=== PATIENT | female | born 1970 | race Caucasian/White ===

== ENCOUNTER 2021-03-02 22:09 | Emergency (ER) | payer BC, SELFPAY ==
[2021-03-02 22:20] VITALS: BP 133/88; PULSE 85; RESP 20; TEMP 36.8; O2SAT 98
[2021-03-02] MEDS: methylPREDNISolone ACETATE 40 MG/ML VIAL 80 MG IM (22:47)
--- NOTE | 2021-03-02 23:06 | ED.SKABFB ---
HPI - Skin/Abscess/Foreign Bdy General Chief complaint: Allergic Reaction Stated complaint: stung by wasp, HIVES Source: patient Mode of arrival: ambulatory Limitations: no limitations History of Present Illness HPI narrative: This is 50-year-old female that presents with a wasp sting to her right lower foot area and has caused a rash that is in her abdomen and back area with no audible wheezing no shortness of breath no nausea vomiting or abdominal pain no fever chills. The patient had a wasp sting earlier today and has tried Benadryl [id number] with some some relief, never had anaphylactic reaction. complaint: rash Onset (ago): hour(s) Location: chest, back and RLE Severity: moderate Pain Consistency: constant Related Data Allergies Allergy/AdvReac Type Severity Reaction Status Date / Time No Known Allergies Allergy Verified 09/23/19 19:39 Review of Systems Review of Systems: All systems reviewed & are unremarkable except as noted in HPI and below PMFSH Past Medical History Medical History Patient denies medical problems Surgical History Surgical History History of cholecystectomy Hx of left knee surgery Hx of right knee surgery Social History Social History Smoking status: Never smoker Alcohol intake: current Substance use: never Gender identity (if verbalized by the patient): Female Exam Const: General: no acute distress and alert Orientation/consciousness: patient oriented x3 HENMT: Head: normal to inspection Eyes: Conjunctivae: conjunctivae normal Pupils: Equal, round and reactive pupils present Neck: Neck: normal visual inspection, no lymphadenopathy and no meningeal signs Chest: Chest palpation & inspection: normal inspection of the chest Resp: Effort & Inspection: normal respiratory effort Auscultation: clear to auscultation bilaterally Cardio: Rate: regular rate Rhythm: regular rhythm GI: GI Palp: Yes Soft to palpation Percussion: Yes normal to percussion : General: Yes no CVA tenderness Back/Spine/Pelvis: Back: no CVA tenderness Skin: Other: urticarial rash located on her upper abdomen and back and an area of inflammation on her right lower foot area with a central punctate lesion it is itchy Neuro: General: patient oriented x3 and moves all extremities Extrem: General: normal to inspection and no pedal edema Psych: Mental Status: mental status grossly normal Course Course Emergency Course: after reassessment of patient patient did receive 80 of Depo-Medrol and has some improvement currently no wheezing no shortness of breath no abdominal pain no fever chills. Vital Signs Vital signs: Vital Signs Temperature 36.8 C 03/02/21 22:20 Pulse Rate 85 03/02/21 22:20 Respiratory Rate 20 03/02/21 22:20 Blood Pressure 133/88 03/02/21 22:20 Pulse Oximetry 98 03/02/21 22:20 Temperature 36.8 C 03/02/21 22:20 Pulse Rate 85 03/02/21 22:20 Respiratory Rate 20 03/02/21 22:20 Blood Pressure 133/88 03/02/21 22:20 Pulse Oximetry 98 03/02/21 22:20 Critical Care Time Critical Care Time Critical Care Time: No Discharge Plan Discharge Clinical Impression: Allergic reaction Qualifiers: Encounter type: initial encounter Qualified Code(s): T78.40XA - Allergy, unspecified, initial encounter Sting, wasp Qualifiers: Encounter type: initial encounter Injury intent: accidental or unintentional Qualified Code(s): T63.461A - Toxic effect of venom of wasps, accidental (unintentional), initial encounter Patient Disposition: Home, Self-Care Condition: Stable Instructions: Antibiotic Form, Urticaria (ED), Insect Bite or Sting (ED) Additional Instructions: can take Claritin daily, and take prednisone as prescribed and follow-up primary care physician if symptoms per
[2021-03-02 23:12] VITALS: BP 140/88; PULSE 87; RESP 20; TEMP 36.9; O2SAT 98
== END 2021-03-02 23:16 | disposition home or self-care (01) ==
PROVIDERS: Emergency Provider Emergency Medicine; PCP Internal Medicine
DX: T78.40XA Allergy, unspecified, initial encounter (principal); T63.461A Toxic effect of venom of wasps, accidental (unintentional), initial encounter; Z90.49 Acquired absence of other specified parts of digestive tract
CPT/HCPCS: 96372; 99283; J1030

== ENCOUNTER 2021-04-30 02:33 | Emergency (ER) | payer BC, SELFPAY ==
[2021-04-30 02:34] VITALS: BP 142/79; PULSE 78; RESP 20; TEMP 36.5; O2SAT 100
[2021-04-30 02:49] VITALS: BP 142/85; PULSE 88; RESP 20; TEMP 37; O2SAT 100
--- NOTE | 2021-04-30 02:50 | PC.NURSE ---
EDMD presents to bedside. Pt states she think she was bitten by a bug on on thursday and now has a wound to above her right eye that has caused swelling, discoloration and pain to right eye. Pt states she was seen by urgent care and provided abt thursday morning. Pt states there is burning and stinging pain and skin has a rash. Pt complain of nausea and denies emesis, fever, chills, diarrhea, chest pain and sob. Pt noted to be alert and oriented x4 and in no obvious distress at time. Call button and personal items within reach. Pt advised to press for assistance.
--- NOTE | 2021-04-30 02:59 | ED.SKABFB ---
HPI - Skin/Abscess/Foreign Bdy General Chief complaint: Skin/Abscess/Foreign Body Stated complaint: insect bite Time Seen by Provider: 04/30/21 02:58 Source: patient Mode of arrival: ambulatory Limitations: no limitations History of Present Illness HPI narrative: Patient is a 50-year-old female complaining of right-sided facial rash that is burning and painful started 2 days ago. Patient states that she was seen in urgent care was prescribed oral antibiotics thinking that she was bitten by an insect on that side. Patient denies any facial, lip, tongue or throat swelling. Patient denies any shortness of breath. Related Data Allergies Allergy/AdvReac Type Severity Reaction Status Date / Time No Known Allergies Allergy Verified 04/30/21 02:38 Review of Systems Review of Systems: All systems reviewed & are unremarkable except as noted in HPI and below PMFSH Past Medical History Medical History Patient denies medical problems Surgical History Surgical History History of cholecystectomy Hx of left knee surgery Hx of right knee surgery Social History Social History Smoking status: Never smoker Alcohol intake: current Substance use: never Gender identity (if verbalized by the patient): Female Exam Const: General: no acute distress Orientation/consciousness: oriented to person, oriented to place, oriented to time, patient oriented x3 and No confusion Limitations: no limitations HENMT: Head: normal to inspection, normocephalic and atraumatic Ears: hearing grossly normal bilaterally, TM normal on the right and TM normal on the left General nose exam: Normal external nose present, Normal nares present and No nasal discharge present Mouth: Yes Normal oral and palatal mucosa present, Yes lip normal, Yes tongue normal and Yes oropharynx normal Throat: posterior oropharynx normal, tonsils normal and uvula midline Other: Erythematous, maculopapular rash with some vesicles on the right frontal head and supraorbital area Eyes: General: appearance normal, both eyes and all related structures Pupils: Equal, round and reactive pupils present EOM: EOMs intact bilaterally Neck: Neck: normal visual inspection, full ROM, no lymphadenopathy and no meningeal signs Chest: Chest palpation & inspection: normal inspection of the chest Resp: Effort & Inspection: normal respiratory effort, able to speak in complete sentences, no respiratory distress and not tachypneic Auscultation: clear to auscultation bilaterally, no crackles, no rales, no rhonchi and no wheezes Cardio: Rate: regular rate Rhythm: regular rhythm GI: Inspection: normal to inspection GI Palp: No abdominal tenderness, Yes Soft to palpation, No Tenderness to palpation present (GI), No Guarding due to palpation present (GI), No Rigid due to palpation and No Rebound tenderness present Auscultation: normal bowel sounds : General: Yes no CVA tenderness Back/Spine/Pelvis: Back: no CVA tenderness Skin: General skin exam: normal color, no rashes or lesions noted, elasticity normal and turgor normal Neuro: General: oriented to person, oriented to place, oriented to time, patient oriented x3, tone normal, moves all extremities, Normal light touch and pain sensation, no meningeal signs, no focal motor deficits, CN's II-XI intact bilaterally and No confusion Cranial nerves: Yes Equal, round and reactive pupils present Speech: No Abnormal speech present Sensory Exam: No Sensory deficit (Neuro) Extrem: General: normal to inspection, full ROM and capillary refill normal Psych: Appearance: grossly normal and well kempt Mental Status: mental status grossly normal Speech and movement: Normal speech and movement present Affect: normal affect Attitude: cooperative Thought process: Normal thought process present
--- NOTE | 2021-04-30 03:40 | PC.NURSE ---
EDMD at bedside to updated pt on poc and all questions and concerns addressed. Pt advised to take all meds as prescribed and follow up with pcp and voices her understanding.
[2021-04-30 03:41] VITALS: BP 115/84; PULSE 68; RESP 19; TEMP 36.9; O2SAT 100
== END 2021-04-30 03:42 | disposition home or self-care (01) ==
LOC: ANHED 03:08
PROVIDERS: Emergency Provider Emergency Medicine; PCP Internal Medicine
DX: B02.9 Zoster without complications (principal)
CPT/HCPCS: 99283

== ENCOUNTER 2021-07-11 12:15 | Outpatient (CLI) | payer BC, SELFPAY ==
--- NOTE | ~2021-07-11 | XR_ITS ---
EXAMINATION: XR chest 2V DATE: 07/11/2021 12:57 INDICATION: Left chest pain. TECHNIQUE: Frontal and lateral views of the chest were obtained. COMPARISON: Chest single view 07/08/2006 FINDINGS: There is mild scarring at the lung apices. No pleural effusion or pneumothorax. The heart s ize is normal. There is mild chronic anterior wedging of multiple midthoracic vertebral bodies. Surgi john clips in the right upper quadrant are likely from cholecystectomy. IMPRESSION: 1. Stable mild scarring at the lung apices. Reviewed, dictated and finalized at location A.
== END 2021-07-11 12:16 | disposition home or self-care (01) ==
LOC: CHSIMG 12:17
PROVIDERS: PCP Internal Medicine; Visit Provider Internal Medicine
DX: R07.9 Chest pain, unspecified (principal)
CPT/HCPCS: 71046

== ENCOUNTER 2021-10-22 07:37 | Outpatient (CLI) | payer BC, SELFPAY ==
--- NOTE | 2021-10-22 07:51 | ECHO_ITS ---
Patient Info Name: Nel Willson Age: 51 years : 1970 Gender: Female Ht: 61 in Wt: 150 lbs BSA: 1.73 m2 HR: 69 bpm BP: 118 / 80 mmHg Technical Quality: Good Exam Date: 10/22/2021 7:58 AM Exam Location: [facility] Patient Status: Outpatient Admit Date: 10/22/2021 Staff Ordering Physician: Mert Smith DO Licensed Physical Therapy Assistant: Colleen Dent RDCS Attending Provider: Mert Smith DO Referring Physician: Luis REYES; Exam Type: CA echo doppler color flow Study Info Indications R07.9 - Chest pain, unspecified Complete two-dimensional, color flow and Doppler transthoracic echocardiogram is performed. Summary 1. Complete two-dimensional, color flow and Doppler transthoracic echocardiogram is performed. 2. Left ventricular chamber dimension is normal. 3. Left ventricular systolic function is normal, estimated at 60-65%. 4. The left ventricular diastolic function is normal. 5. E/e' 6 is not elevated. 6. Global longitudinal strain is normal at -21.1%. 7. There is mild mitral valve regurgitation. 8. There is mild tricuspid valve regurgitation. 9. No pulmonary hypertension, estimated pulmonary arterial systolic pressure is 29 mmHg. Left Ventricle E/e' 6 is not elevated. Global longitudinal strain is normal at -21.1%. Left ventricular chamber dimension is normal. Left ventricular systolic function is normal, estimated at 60-65%. The left ventricular diastolic function is normal. Right Ventricle Right ventricular chamber dimension is normal. Right ventricular systolic function is normal. Left Atria Left atrial chamber dimension is normal. Right Atria Right atrial chamber dimension is normal. Aortic Valve The aortic valve is trileaflet. There is no aortic valve stenosis. There is no aortic valve regurgitation. Pulmonic Valve There is no pulmonic regurgitation. Mitral Valve There is no mitral valve stenosis. There is mild mitral valve regurgitation. Tricuspid Valve There is mild tricuspid valve regurgitation. No pulmonary hypertension, estimated pulmonary arterial systolic pressure is 29 mmHg. Pericardium/Pleural There is no pericardial effusion. Inferior Vena Cava Normal inferior vena cava with >50% collapse upon inspiration consistent with normal right atrial pressure, 5 mmHg. Aorta The aortic root size at the sinus of Valsalva is normal. Left Ventricular Outflow Tract Name Value Normal LVOT 2D LVOT Diameter 2.0 cm LVOT Doppler LVOT Peak Gradient 5 mmHg LVOT Mean Gradient 3 mmHg LVOT VTI 27 cm LVOT VTI/AV VTI Ratio 1.1 LVOT Stroke Volume 87 ml LVOT CO 4.8 l/min LVOT CI 2.8 l/min/m2 Pulmonic Valve Name Value Normal RVOT Doppler
--- NOTE | 2021-10-22 07:51 | EST_ITS ---
Patient Info Name: Nel Willson Age: 51 years : 1970 Gender: Female Ht: 61 in Wt: 150 lbs BSA: 1.73 m2 HR: 58 bpm BP: 133 / 78 mmHg Heart Rhythm: Sinus Rhythm Exam Date: 10/22/2021 8:49 AM Exam Location: [facility] Patient Status: Outpatient Admit Date: 10/22/2021 Staff Ordering Physician: Mert Smith DO Attending Provider: Mert Smith DO Exercise Technologist: Amada Alberto CT Exercise Physician: Mert Smith DO Exam Type: CA stress test treadmill Study Info Indications R07.9 - Chest pain, unspecified An exercise stress test was performed. Summary 1. 1. Negative Murray exercise stress test for ischemic ST changes by ECG criteria. 2. 2. Good functional capacity, achieving 7 METs of workload. 3. 3. Appropriate HR response to exercise. 4. 4. Appropriate HR recovery at 1 minute post exercise. 5. 5. No imaging with stress testing. 6. 6. Patient informed of the above results. Protocol: Murray Stress ECG Details Stage: REST Duration (min): 0 min : 59 sec Speed (mph): 0.0 Grade (%): 0 HR (bpm): 58 SBP (mmHg): 133 DBP (mmHg): 78 METS: --- Stage: REST Duration (min): 6 min : 39 sec Speed (mph): 0.0 Grade (%): 0 HR (bpm): 70 SBP (mmHg): 133 DBP (mmHg): 78 METS: --- Stage: STAGE 1 Duration (min): 1 min : 0 sec Speed (mph): 1.7 Grade (%): 10 HR (bpm): 102 SBP (mmHg): 133 DBP (mmHg): 78 METS: --- Stage: STAGE 1 Duration (min): 2 min : 0 sec Speed (mph): 1.7 Grade (%): 10 HR (bpm): 117 SBP (mmHg): 133 DBP (mmHg): 78 METS: --- Stage: STAGE 1 Duration (min): 3 min : 0 sec Speed (mph): 1.7 Grade (%): 10 HR (bpm): 119 SBP (mmHg): 144 DBP (mmHg): 89 METS: --- Stage: STAGE 2 Duration (min): 1 min : 0 sec Speed (mph): 2.5 Grade (%): 12 HR (bpm): 131 SBP (mmHg): 144 DBP (mmHg): 89 METS: --- Stage: STAGE 2 Duration (min): 2 min : 0 sec Speed (mph): 2.5 Grade (%): 12 HR (bpm): 148 SBP (mmHg): 174 DBP (mmHg): 90 METS: --- Stage: STAGE 2 Duration (min): 3 min : 0 sec Speed (mph): 2.5 Grade (%): 12 HR (bpm): 146 SBP (mmHg): 174 DBP (mmHg): 90 METS: --- Stage: STAGE 3 Duration (min): 0 min : 13 sec Speed (mph): 3.4 Grade (%): 14 HR (bpm): 147 SBP (mmHg): 174 DBP (mmHg): 90 METS: --- Stage: RECOVERY Duration (min): 0 min : 46 sec Speed (mph): 0.0 Grade (%): 0 HR (bpm): 123 SBP (mmHg): 171 DBP (mmHg): 75 METS: --- Stage: RECOVERY Duration (min): 1 min : 2 sec Speed (mph): 0.0 Grade (%): 0 HR (bpm): 115 SBP (mmHg): 171 DBP (mmHg): 75 METS: --- Rest HR: 70 bpm Peak HR: 148 bpm Rest Sys BP: 133 mmHg Peak Sys BP: 174 mmHg Max Pred HR: 169 bpm % Max Pred HR: 88 % Target HR: 144 bpm Max RPP: 25,752 bpm*mmHg Holland Score: 2 Termination Reason: Re
== END 2021-10-22 07:38 | disposition home or self-care (01) ==
PROVIDERS: PCP Internal Medicine; Visit Provider Internal Medicine Cardiovascular Disease
DX: R07.89 Other chest pain (principal); I34.0 Nonrheumatic mitral (valve) insufficiency; I36.1 Nonrheumatic tricuspid (valve) insufficiency
CPT/HCPCS: 93017; 93306

== ENCOUNTER 2022-09-18 12:00 | Emergency (ER) | payer BC, SELFPAY ==
[2022-09-18] MEDS: prednisoLONE ORAL SOLN 30 MG/10 ML SOLUTION PO ×2 (12:34)
--- NOTE | 2022-09-18 12:34 | ED.GENADULT ---
HPI - General Adult General Chief complaint: Upper Respiratory Infection Stated complaint: at home test covid pos, can't swallow Time Seen by Provider: 09/18/22 12:09 Source: patient Mode of arrival: ambulatory Limitations: no limitations History of Present Illness HPI narrative: This is a 52-year-old female presents after she tested positive on a home COVID test with some severe sore throat and having trouble swallowing because of pain, otherwise no shortness of breath no audible wheezing has had low-grade fevers with no nausea vomiting no chest pain or pressure. Onset (ago): day(s) Severity: mild Related Data Allergies Allergy/AdvReac Type Severity Reaction Status Date / Time No Known Allergies Allergy Verified 09/18/22 12:46 Review of Systems Review of Systems: All systems reviewed & are unremarkable except as noted in HPI and below PMFSH Past Medical History Medical History Patient denies medical problems Surgical History Surgical History History of cholecystectomy Hx of left knee surgery Hx of right knee surgery Social History Social History Smoking status: Never smoker Alcohol intake: current Substance use: never Gender identity (if verbalized by the patient): Female Exam Const: General: healthy appearing Nutritional Appearance: well nourished Orientation/consciousness: patient oriented x3 Limitations: no limitations HENMT: Head: normal to inspection Face/Nose/Sinus: Normal external nose present Face and sinus: normal facial exam Other: Patient with some erythematous pharynx Eyes: Conjunctivae: conjunctivae normal EOM: EOMs intact bilaterally Direct Ophthalmoscopy: no photophobia Neck: Neck: normal visual inspection Chest: Chest palpation & inspection: normal inspection of the chest Resp: Effort & Inspection: normal respiratory effort Auscultation: clear to auscultation bilaterally Cardio: Rate: regular rate Rhythm: regular rhythm GI: GI Palp: Yes Soft to palpation : General: Yes bladder normal to palpation Back/Spine/Pelvis: Back: no CVA tenderness Skin: General skin exam: normal color Rashes: no rashes Wounds: no wounds Neuro: General: patient oriented x3, moves all extremities and no meningeal signs Extrem: General: normal to inspection, no clubbing, cyanosis or edema and no pedal edema Course Course Emergency Course: patient received Orapred solution, and strep and influenza reviewed with patient were negative otherwise patient is currently afebrile vitals are stable O2 sats at 98% on room air. Medical Decision Making Lab Data Labs: Lab Results 09/18/22 09/18/22 Range/Units 12:23 12:29 Influenza A (RT-PCR) Pending Influenza B (RT-PCR) Pending Group A Strep (PCR) Pending Critical Care Time Critical Care Time Critical Care Time: No Discharge Plan Discharge Clinical Impression: COVID-19 Patient Disposition: Home, Self-Care Condition: Stable Instructions: Antibiotic Form, COVID-19 (Coronavirus Disease 2019) (ED) Additional Instructions: Take medicine as prescribed and follow-up with primary care physician if symptoms persist or worsen, should isolate for 5 days. Prescriptions: New Paxlovid (EUA) 300 mg (150 mg x 2)-100 mg tablets,dose pack See Rx Instructions .ROUTE .COMPLEX Qty: 30 0RF Rx Instructions: take TWO 150 mg tablets of nirmatrelvir with ONE 100 mg tablet of ritonavir twice daily for 5 days prednisolone 15 mg/5 mL solution 30 mg PO BID 5 Days Qty: 100 0RF Follow-up/Referrals: Bart Baeza MD [Primary Care Provider] - Time of Disposition: 13:18
[2022-09-18 12:39] VITALS: BP 117/91; PULSE 107; RESP 20; TEMP 36.9; O2SAT 98
[2022-09-18 12:45] VITALS: O2SAT 98
[2022-09-18 12:55] LABS: Strep Group A RT-PCR Negative (Negative)
[2022-09-18 13:08] LABS: Influenza A QL RT-PCR Negative (Negative); Influenza B QL RT-PCR Negative (Negative)
[2022-09-18 13:26] VITALS: BP 115/78; PULSE 89; RESP 20; TEMP 36.9; O2SAT 99
== END 2022-09-18 13:29 | disposition home or self-care (01) ==
PROVIDERS: Emergency Provider Emergency Medicine; PCP Internal Medicine
DX: U07.1 COVID-19 (principal)
CPT/HCPCS: 87502; 87651; 99283; A9270

== ENCOUNTER 2022-12-30 07:47 | Outpatient (CLI) | payer BC, SELFPAY ==
--- NOTE | ~2022-12-30 | XR_ITS ---
EXAMINATION: XR barium swallow DATE: 12/30/2022 10:31 CHOCOLATE DIPPER INDICATION: Dysphagia TECHNIQUE: Thin barium contrast with gas effervescent crystals were administered orally. Fluoroscopi c images of the esophagus were obtained in various projections. The hypopharynx was also examined. Th ereafter, overhead images of the thoracic esophagrus were performed. Fluroscopy time 1.1 minutes. 57 images. FINDINGS: The esophagus is normal in caliber, without mucosal lesions or strictures. There is normal esophageal peristalsis. There is no hiatal hernia. No discreet episode of gastroesophageal reflux i s seen during the course of this study. IMPRESSION: 1. Normal barium esophagram. Reviewed, dictated and finalized at location L. OLATE DIPPER
--- NOTE | ~2022-12-30 | US_ITS ---
EXAMINATION: US thyroid DATE: 12/30/2022 08:51 INDICATION: Goiter. TECHNIQUE: Multiple ultrasound images of the thyroid were obtained. COMPARISON: Ultrasound thyroid 09/08/2017 FINDINGS: The right thyroid lobe measures 7.8 x 2.8 x 3.4 cm. The left thyroid lobe measures 7.4 x 3.0 x 3.1 c m. In the left thyroid lobe, there is a 3.6 cm solid, hypoechoic, wider than tall nodule with ill-de fined margin without echogenic foci (TI-RADS TR4), stable from 09/08/17 considering differences in sahara surement technique. In the right thyroid lobe, there is a 17 mm predominantly cystic nodule (TR1). In the thyroid isthmus, there is a 2.2 cm solid, hypoechoic, wider than tall nodule with ill-defined ma rgin without echogenic foci (TR4), stable from 09/08/17. IMPRESSION: 1. Multinodular goiter, likely benign. Reviewed, dictated and finalized at location A. NING PRESS OPERATOR
== END 2022-12-30 07:48 | disposition home or self-care (01) ==
PROVIDERS: PCP Internal Medicine; Visit Provider Internal Medicine
DX: E04.2 Nontoxic multinodular goiter (principal); R13.12 Dysphagia, oropharyngeal phase
CPT/HCPCS: 74220; 76536

== ENCOUNTER 2023-03-06 02:42 | Day surgery (SDC) | payer BC, SELFPAY ==
[2023-02-25 13:00] VITALS: BMI 28.4
[2023-03-06 09:22] VITALS: BP 133/88; PULSE 58; RESP 20; TEMP 36.3; O2SAT 100; BMI 28.6
[2023-03-06] MEDS: LACTATED RINGERS 1,000 ML 150 ML IV CONT (09:32)
--- NOTE | 2023-03-06 09:45 | PM.HPGS ---
History of Present Illness History of Present Illness Consent: Risks, benefits, and alternatives have been discussed and questions answered. Patient agrees to proceed with procedure. Chief complaint: neoplasm screening Narrative: Nel Solorzano is a 52 year old female here for first screening colonoscopy Review of Systems Constitutional: Constitutional: Denies headache(s) and Denies weakness Eyes: Eyes: Denies blurry vision ENT: Reports Normal hearing present, Denies headache(s) and Denies neck pain Cardiovascular: Cardiovascular: Denies chest pain and Denies dyspnea Respiratory: Respiratory: Denies dyspnea Gastrointestinal: Gastrointestinal: Reports no additional gastrointestinal complaints Genitourinary: Genitourinary: Denies dysuria Musculoskeletal: Musculoskeletal: Denies neck pain Integumentary/Breasts: Skin/Breast: Denies dry skin Neurologic: Reports Normal hearing present, Denies headache(s) and Denies weakness Psychiatric: Psychiatric: Denies anxiety Endocrine: Endocrine: Denies change in body appearance Hematologic/Lymphatic: Hematologic/Lymphatic: Denies easy bleeding Allergic/Immunologic: Allergic/Immunologic: Denies urticaria PMF Past Medical History Medical History (Updated 03/06/23 @ 09:45 by Rajiv Mancini MD) Colon cancer screening Patient denies medical problems Surgical History Surgical History History of cholecystectomy Hx of left knee surgery Hx of right knee surgery Social History Social History Smoking status: Never smoker Alcohol intake: current Alcohol use details: rarely Substance use: never Substance use type: does not use Living arrangements: with family Gender identity (if verbalized by the patient): Female Spiritual care concerns: No Meds Home Medications and Allergies Home Medications Medication Instructions Recorded Confirmed Type No Home Medications 12/22/22 03/06/23 History Allergies Allergy/AdvReac Type Severity Reaction Status Date / Time No Known Allergies Allergy Verified 03/06/23 09:21 Vital Signs Vital Signs - 24 hr 03/06/23 09:22 Temperature 97.4 F L Pulse Rate 58 L Respiratory Rate 20 Blood Pressure 133/88 Pulse Oximetry 100 Oxygen Delivery Room Air Exam Const: General: comfortable and no acute distress HENMT: Face/Nose/Sinus: Normal nares present Eyes: General: appearance normal, both eyes and all related structures Neck: Neck: no JVD Resp: Auscultation: clear to auscultation bilaterally Cardio: Rate: regular rate Rhythm: regular rhythm GI: Inspection: non-distended GI Palp: Yes Soft to palpation Skin: General skin exam: normal color Neuro: General: gait normal Speech: normal speech Extrem: General: normal to inspection Psych: Mental Status: mental status grossly normal Assessment and Plan Assessment and plan (1) Colon cancer screening: Code(s): Z12.11 - Encounter for screening for malignant neoplasm of colon Status: Acute Assessment and Plan: colonoscopy
[2023-03-06 10:02] VITALS: BP 99/64; PULSE 73; RESP 20; O2SAT 100
[2023-03-06 10:12] VITALS: BP 112/79; PULSE 76; RESP 22; O2SAT 100
[2023-03-06 10:22] VITALS: BP 114/77; PULSE 70; RESP 20; O2SAT 100
== END 2023-03-06 10:28 | disposition home or self-care (01) ==
PROVIDERS: PCP Internal Medicine; Visit Provider Internal Medicine Gastroenterology
PROC: 0DJD8ZZ Inspection of Lower Intestinal Tract, Via Natural or Artificial Opening Endoscopic (ICD-10-PCS; CPT 45378; principal; 2023-03-06 10:30)
DX: Z12.11 Encounter for screening for malignant neoplasm of colon (principal); K63.5 Polyp of colon
CPT/HCPCS: 45385; 88305; J2704; J7120

== ENCOUNTER 2024-01-18 15:48 | Outpatient (CLI) | payer BC, SELFPAY ==
--- NOTE | 2024-01-18 16:08 | ECG_ITS ---
Measurements Intervals [place] Rate: 58 P: 55 MI: 134 QRS: 47 QRSD: 78 T: 43 QT: 413 QTc: 409 Interpretive Statements SINUS BRADYCARDIA CANNOT RULE OUT SEPTAL INFARCT, AGE INDETERMINATE ABNORMAL ECG COMPARED TO ECG 09/23/2019 19:33:55 SINUS BRADYCARDIA NOW PRESENT Electronically Signed On 01-18-2024 17:30:56 CDT by Mert Smith D.O.
[2024-01-18 16:14] LABS: Basophils Absolute Auto 0.08 K/mm3 (0.00-0.10); Eosinophils Percent Auto 1.3 % (1.0-6.0); Hematocrit 43.8 % (35.0-49.0); Hemoglobin 14.4 g/dL (12.0-15.0); Immature Granulocyte Absolute 0.02 K/mm3 (0.00-0.00); Immature Granulocyte Percent A 0.3 % (0.0-0.0); Lymphocytes Absolute Auto 1.89 K/mm3 (1.10-4.50); Lymphocytes Percent Auto 23.7 % (18.0-42.0); Mean Corpuscular HGB Conc 32.9 g/dL (32-36); Mean Corpuscular Hemoglobin 30.5 pg (27.0-31.0); Mean Corpuscular Volume 92.8 fL (78.0-102.0); Mean Platelet Volume 9.9 fl (9.2-11.8); Monocytes Absolute Auto 0.45 K/mm3 (0.10-0.90); Monocytes Percent Auto 5.6 % (2.0-11.0); Neutrophils Absolute Auto 5.44 K/mm3 (1.70-7.20); Neutrophils Percent Auto 68.1 % (50.0-70.0); Platelet Count Result 299 K/mm3 (150-420); Red Blood Count 4.72 M/mm3 (4.20-5.40); Red Cell Distribution Width 13.9 % (11.6-14.4)
[2024-01-18 17:15] LABS: Alanine Aminotransferase 24 U/L (14-59); Albumin Level 4.3 g/dL (3.4-5.0); Alkaline Phosphatase 93 U/L (46-116); Anion Gap 11 mmol/L (8-16); Aspartate Amino Transferase 18 U/L (15-37); Bilirubin,Total 0.4 mg/dL (0.00-1.00); Blood Urea Nitrogen 23 mg/dL (7-18); Calcium 9.8 mg/dL (8.5-10.1); Carbon Dioxide 29 mmol/L (21-32); Chloride 103 mmol/L (98-108); Estimated Glomerular Filt Rate 59; Glucose 96 mg/dL (70-99); Osmolality Calculated 299 mOsm/kg (285-295); Potassium 4.2 mmol/L (3.5-5.1); Sodium 143 mmol/L (136-145); Total Protein 7.3 g/dL (6.4-8.2)
== END 2024-01-18 15:49 | disposition home or self-care (01) ==
PROVIDERS: PCP Internal Medicine; Visit Provider Orthopaedic Surgery
DX: Z01.818 Encounter for other preprocedural examination (principal); R00.1 Bradycardia, unspecified; R94.31 Abnormal electrocardiogram [ECG] [EKG]
CPT/HCPCS: 36415; 80053; 85025; 93005

== ENCOUNTER 2024-02-23 14:28 | Outpatient (RCR) | payer BC, SELFPAY | END 2024-05-09 10:41 | disposition home or self-care (01) | LOC: ANHDMC 14:28 | PROVIDERS: PCP Internal Medicine; Visit Provider Internal Medicine Cardiovascular Disease | DX: E66.9 Obesity, unspecified (principal); Z68.30 Body mass index [BMI] 30.0-30.9, adult; Z71.3 Dietary counseling and surveillance | CPT/HCPCS: 97802 ==